=== PATIENT | male | born 1950 | race Caucasian/White ===

== ENCOUNTER 2017-05-14 08:45 | Day surgery (SDC) | payer OTHER ==
[~2017-05-14] VITALS: Ht 170.2 cm; Wt 114.3 kg
[~2017-05-14 08:45] MED LIST: ACETAMINOPHEN325 M1 PO; AMLODIPINE BESYL5 MG PO; ATROVENT15 ML NS; CIPRO500 MG PO; CITALOPRAM HBR20 MG PO; COMPLETE MULTI1 EACH PO; COZAAR100 MG PO; FISH OIL500 MG PO; FLOMAX0.4 MG PO; FLUNISOLIDE1 SPRAY; FUROSEMIDE20 MG PO; LIPITOR20 MG PO; LO-DOSE ASPIRIN81 MG PO; LORATADINE10 MG PO; METFORMIN HCL1000 MG PO; METFORMIN HCL500 MG PO; NAPROSYN500 MG PO; POTASSIUM CHLO10 MEQ PO; PRAVACHOL20 MG PO; PROTONIX20 MG PO; PROVENTIL HFA6.7 GM INH; PSEUDOEPHEDRINE60 MG PO; TRIAMTERENE-HC1 EAC1 PO
--- NOTE | 2017-05-14 12:32 | NUR ---
05/14/17 1232 [facility] ARRIVED IN PACU SLEEPY WITH ORAL AIRWAY IN PLACE. 1153 PT AWAKE. ORAL AIRWAY REMOVED. PT SITTING UP IN BED TALKING TO STAFF. 1215 SIPPING ON WATER. PASSING FLATUS. 1230 DC INSTRUCTIONS GIVEN TO PT/SPOUSE. PT UP TO BATHROO. PASSING FLATUS.
--- NOTE | 2017-05-15 10:58 | OR ---
[facility] [address] [place], [place] [address] Signed DATE OF OPERATION: 05/14/2017 SURGEON: Yenni Martinez MD PREOPERATIVE DIAGNOSES: 1. Restrepo's esophagus. 2. Diverticulosis. 3. Internal hemorrhoids. POSTOPERATIVE DIAGNOSES: 1. Minimal to moderate diffuse gastritis. 2. Small hiatal hernia. 3. Moderate disruption to Z-line without Restrepo's esophagus. 4. Moderate sigmoid diverticulosis. 5. A 5 mm polyp at 8 cm. 6. Multiple internal and external anal skin tags. PROCEDURES: 1. EGD with CLOtest and biopsies of the antrum and GE junction. 2. Colonoscopy with hot biopsy. ESTIMATED BLOOD LOSS: None. INDICATIONS: Ar is a 67-year-old, obese, diabetic, disabled gentleman from our [facility]. He was asked to see me for followup upper and lower endoscopy. A colonoscopy in 2001 showed diverticulosis with some internal hemorrhoids. No evidence of any colon cancer or polyps. He told me there is no family history of colon cancer or polyps. However, he did mention his Restrepo's esophagus. He is aware that Restrepo's esophagus increases risk for esophageal cancer 11 times over the baseline population. He checked to his primary care provider and decided he wanted me to evaluate the esophagus and stomach as well. He also mentioned to me that I did his 's colonoscopy just a few weeks ago, so they are familiar with the whole process. I gave him pamphlets on upper and lower endoscopy in the office and we looked at that together along with the risks including, but not limited to, gas bloating, crampy abdominal pain, bleeding, perforation, requiring surgery, and missed diagnosis. In addition, because of his severe medical issues along with his daily need for citalopram, we asked that an anesthesia provider help us with increased monitoring and sedation with propofol. He had expressed understanding and wished to proceed. Electronically Signed By: YENNI MARTINEZ MD 05/15/17 1058 PATIENT NAME: AR BARTHOLOMEW OPERATIVE REPORT DATE OF : 50 PHYSICIAN: YENNI MARTINEZ MD REPORT #: [id number] REPORT IS CONFIDENTIAL AND NOT TO BE RELEASED WITHOUT AUTHORIZATION [facility] [address], [place] [address] Signed PROCEDURE NOTE: Ar was taken into our endoscopy suite and placed in the supine semi-recumbent position. He was given IV sedation with propofol per our nurse enrobing machine corder. The posterior oropharynx was anesthetized with Hurricaine spray. A bite block was utilized for the case. After this, the adult gastroscope was introduced and advanced all the way out into the third portion of the duodenum under direct visualization of camera without difficulty. The duodenum and pyloric channel were unremarkable. Unfortunately, our computer did not capture the pictures. He does have moderate diffuse gastritis. We went and took a biopsy from the antrum for CLOtest as well as pathologic review. Upon retroflexion of scope, he has just a small hiatal hernia. The scope was withdrawn up through the area of the GE junction, which was compliant without stricture. We saw no gastric or esophageal varices. No ulcerations. He does have moderate disruption to his Z-line, but it does not have a classic velvety appearance of Restrepo's esophagus. We went ahead and took a biopsy along the edge of the Z-line for pathologic review. The middle and upper esophagus were unremarkable. After this, the gas was suctioned out and the gastroscope removed. Ar tolerated his upper endoscopy quite well. Ar was then rotated into the left lateral decubitus position. He was maintained on IV sedation with his propofol. A digital rectal exam was performed and I could feel some internal anal skin tags. He had several small external anal skin tags as well. He is a big man and I could just barely feel the bottom of the prostate. It was a little indurated, but I could not feel a specific nodule. After this, the adult colonoscope was introduced and advanced all around into the cecum under direct visualization of camera without difficulty. His prep was moderate. He had a few areas of liquid particulate stool matter that clogged out my scope. We did slowly withdrawn the scope. We could see the united auburn's foot, the appendiceal orifice, and the ileocecal valve. In the sigmoid colon, he does have diverticula. They were moderate in size, moderate in number, and scattered about. The rectum was unremarkable other than a 5 mm polyp. We removed at 8 cm. Upon retroflexion of the scope, we could see his internal anal skin tags. After this, the gas was suctioned out and the colonoscope removed. Ar tolerated the lower endoscopy quite well. RECOMMENDATIONS: I will see Ar back in my office in 7 to 14 days to review his results. Yenni Martinez MD Electronically Signed By: YENNI MARTINEZ MD 05/15/17 1058 PATIENT NAME: AR BARTHOLOMEW OPERATIVE REPORT DATE OF : 50 PHYSICIAN: YENNI MARTINEZ MD REPORT #: [id number] REPORT IS CONFIDENTIAL AND NOT TO BE RELEASED WITHOUT AUTHORIZATION [facility] [address] [place], [place] [address] Signed ALB/MODL /[id number] cc: LATESHA Naidu MD Electronically Signed By: YENNI MARTINEZ MD 05/15/17 1058 PATIENT NAME: BARTHOLOMEWAR OPERATIVE REPORT DATE OF : 50 PHYSICIAN: YENNI MARTINEZ MD REPORT #: [id number] REPORT IS CONFIDENTIAL AND NOT TO BE RELEASED WITHOUT AUTHORIZATION
== END 2017-05-14 12:35 | disposition home or self-care (01) ==
LOC: OPS 08:45 → DS 08:45 → OPS 10:30 → DS 10:30 → OPS 12:35
PROVIDERS: Colon & Rectal Surgery
PROC: 0DBP8ZX Excision of Rectum, Via Natural or Artificial Opening Endoscopic, Diagnostic (ICD-10-PCS; 2017-05-14)
PROC: 0DB48ZX Excision of Esophagogastric Junction, Via Natural or Artificial Opening Endoscopic, Diagnostic (ICD-10-PCS; principal; 2017-05-14 10:30)
PROC: 0DB78ZX Excision of Stomach, Pylorus, Via Natural or Artificial Opening Endoscopic, Diagnostic (ICD-10-PCS; 2017-05-14 10:30)
DX: Z12.11 Encounter for screening for malignant neoplasm of colon (principal); D12.8 Benign neoplasm of rectum; K29.50 Unspecified chronic gastritis without bleeding; K20.9 Esophagitis, unspecified; K57.30 Diverticulosis of large intestine without perforation or abscess without bleeding; K64.8 Other hemorrhoids; K44.9 Diaphragmatic hernia without obstruction or gangrene; K64.4 Residual hemorrhoidal skin tags; Z79.82 Long term (current) use of aspirin; Z79.84 Long term (current) use of oral hypoglycemic drugs; Z79.899 Other long term (current) drug therapy; Z88.8 Allergy status to other drugs, medicaments and biological substances
CPT/HCPCS: 86677; 88305; J2704; J7120

== ENCOUNTER 2020-03-06 01:21 | Inpatient (IN) | payer MEDICARE ==
[~2020-03-06] VITALS: Ht 170.2 cm; Wt 111.5 kg
[~2020-03-06 01:21] MED LIST changes: -ACETAMINOPHEN325 M1 PO; -AMLODIPINE BESYL5 MG PO; -COMPLETE MULTI1 EACH PO; +FISH OIL 1,2001 EACH PO; -FISH OIL500 MG PO; -FUROSEMIDE20 MG PO; +KLOR-CON M1010 MEQ PO; +LASIX80 MG PO; -LIPITOR20 MG PO; +LIPITOR80 MG PO; +MULTI VITAMIN1 EACH PO; +NORVASC10 MG PO; -POTASSIUM CHLO10 MEQ PO; -PROTONIX20 MG PO; +PROTONIX40 MG PO; +PSEUDOEPHEDRINE30 MG PO; -PSEUDOEPHEDRINE60 MG PO; +TYLENOL EXTRA500 MG PO
[2020-03-06] MEDS ORDERED: NEURONTIN600 MG PO (03:06)
[2020-03-06] MEDS ORDERED: TROSPIUM CHLORI20 MG PO (03:10)
[2020-03-06] MEDS ORDERED: ARICEPT5 MG PO (03:12)
[2020-03-06] MEDS ORDERED: CALCIUM 600 MG1 EAC4 PO (03:13)
[2020-03-06] MEDS ORDERED: CARBIDOPA-LEVO1 EAC1 PO (03:15)
--- NOTE | 2020-03-06 06:00 | NUR ---
PATIENT ARRIVED VIA STRETCHER TO THE UNIT. TRANSFERED WITH 4 STAFF ASSIST TO BED. PATIENT INCONTINENT OF LARGE AMOUNT OF URINE. REQUESTING BEDPAN. PATIENT VOIDED AGAIN ON BEDPAN AN UNMEASURED AMOUNT. PATIENT AAOX4. VS WNL. 3+ EDEMA NOTED IN DASH FEET. 2+ IN LOWER EXTREMITITES. ABD IS SOFT, BOWEL SOUNDS ACTIVE. PATIENT PASSING GAS. LUNGS ARE CLEAR, DIM IN THE BASES. PATIENT REPORTS CHRONIC COUGH. BREATHING REGULAR AND NONLABORED. TOLERATING ROOM AIR. IV FLUIDS PER ORDER, SITE WNL X2.
--- NOTE | 2020-03-06 07:38 | NUR ---
this rn received report from tali ballard. when this rn entereed room she noticed that pt was shivering. this rn provided pt with 650mg of tylenol. this rn and lizbet ballard provided pt with warm blankets to provide comfort to pt.
--- NOTE | 2020-03-06 08:57 | NUR ---
WHEN THIS RN IN PT SROOM ASSESSING THE PT, PT STATED THAT ONCE IN AWHILE HE DOES INCREASE WORK OF BREATHING. PT HAD EXERCTIONAL SHORTNESS OF BREATH WHEN THIS RN AND DARIA RN MOVED PT UP IN BED. THIS RN AWARE OF PTS TEMP AND WILL CONTINUE TO MONITOR
--- NOTE | 2020-03-06 10:58 | NUR ---
THIS RN INSERTED PTS FLORENTINO CATH. PT TOLERATED WELL AND THERE WERE NO ISSUES GETTING PASSED THE PROSTATE. YELLOW URINE DRAINING FROM BAG IMMEDIATELY AFTER INSERTION
--- NOTE | 2020-03-06 13:28 | NUR ---
this rn called to discuss with him that pts mg was 1.3
--- NOTE | 2020-03-06 13:44 | NUR ---
THIS RN IN PTS ROOM DUE TO PT STATING THAT HE WAS HAVING SOME MILD SHORTNESS OF BREATH. PTS VITALS ARE STABEL AND TYLOR SOUNDS ARE CLEAR IN THE UPPERS AND EXPIRATORY WHEEZES IN THE BASES. DARIA RN IN ROOM WITH THIS RN TO ASSIST WITH ASSESSMENT.
--- NOTE | 2020-03-06 14:00 | NUR ---
pts caregiver at bedside at this time
--- NOTE | 2020-03-06 15:10 | NUR ---
THIS RN IN PTS ROOM TO GIVE HIM MEDS. PT STATED THAT HE FELT THE NEED TO HAVE A BM. THIS RN ABLE TO ASSIST PT TO THE BEDSIDE COMMODE WITH HELP FROM DARIA BLACK. PT ABLE TO STAND AND TRANSFER TO THE COMMODE USING A FWW. PT STEADY ON HIS FEET AND ONLY NEEDED SET UP ASSIST AND STAND BY ASSIST.
[2020-03-06] MEDS ORDERED: DITROPAN XL10 MG PO (16:34)
[2020-03-06] MEDS ORDERED: LAMISIL AT12 G1 TOP (16:37)
[2020-03-06] MEDS ORDERED: FLUTICASONE PRO16 GM NAS (16:39)
[2020-03-06] MEDS ORDERED: CLARITIN10 MG PO (16:42)
[2020-03-06] MEDS ORDERED: BLUE TUBE30 GM TOP (16:42)
[2020-03-06] MEDS ORDERED: ASMANEX220 MC1 INH (16:46)
[2020-03-06] MEDS ORDERED: FLOMAX0.4 MG PO (16:47)
[2020-03-06] MEDS ORDERED: LUBRICANT EYE D15 M3 OU (16:54)
[2020-03-06] MEDS ORDERED: REFRESH LIQUIGE15 ML OU (16:55)
--- NOTE | 2020-03-06 17:00 | NUR ---
BACK TO BED WITH ASSIST. USING WALKER. ACCUCHECK-110.
--- NOTE | 2020-03-06 18:00 | NUR ---
this rn in pts room to check on pt. pt states that he is having some shortness of breath. pt states that the sob feels likes congestion. this rn educated pt about using the elk horn/ bugle rt device and the IS. pt used both after this rn educated pt. pt states he feels these are improving his shortness of breath
--- NOTE | 2020-03-06 20:30 | NUR ---
SHIFT REPORT RECEIVED FROM SOFIA NIEVES. ASSESSMENT COMPLETED. PT IS ALERT/ORIENTED, REPORTS 5/10 FLANK AND HIP PAIN, PRN TYLENOL GIVEN. LUNGS CLEAR/DIM, RA. HR REGULAR. BOWEL TONES ACTIVE. FLORENTINO PATENT, CATH CARE PROVIDED. SKIN GROSSLY INTACT, MILD EDEMA NOTED IN BILATERAL FEET/ANKLES. 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 IV SITES INTACT AND PATENT, FLUIDS INFUSING WNL. PT TOOK EVENING MEDICATIONS WITHOUT ISSUE. LIGHTS TURNED OFF BY REQUEST. FRESH WATER PROVIDED. PT DENIES FURTHER REQUESTS OR COMPLAINTS AT THIS TIME, CALL LIGHT AND BELONGINGS WITHIN REACH.
--- NOTE | 2020-03-06 22:16 | NUR ---
PT CALLED NEEDING TO HAVE BM. UP TO BSC WITH 1-PA AND FWW. PT HAD SMALL AMOUNT OF BROWN SEMI-LIQUID STOOL. PERICARE PROVIDED AND PT RETURNED TO BED. PT COMPLAINING CHEST CONGESTION AND FEELING LIKE HE ISN'T ABLE TO FULLY CLEAR HIS SECRETIONS DESPITE USING I.S. AND ACAPELLA. DR. ETIENNE CALLED AND ORDER RECEIVED FOR PRN ROBITUSSIN. ORDERS ALSO RECEIVED TO STOP IV FLUID. PT REPORTS HE USES HOME CPAP, R.T. CALLED TO SET UP A MACHINE FOR HIM.
--- NOTE | 2020-03-07 00:11 | NUR ---
HEARD CPAP ALARMING, IN TO CHECK ON PT WHO WAS AWAKE IN BED. HE WAS SLIGHTLY CONFUSED UPON WAKING AND THOUGHT HE WAS HOME, HE QUICKLY RE-ORIENTED TO SURROUNDINGS. PT THOUGHT HE NEEDED TO HAVE ANOTHER BM, UP TO BSC WITH 1-PA AND FWW, BUT ONLY PASSED FLATUS. RETURNED TO BED. ASSESSMENT COMPLETED, UNCHANGED. CPAP PLACED BACK ON PT. NO FURTHER REQUESTS OR COMPLAINTS AT THIS TIME.
--- NOTE | 2020-03-07 02:27 | NUR ---
PT CALLED, UP TO BSC WITH 1-PA AND FWW. UNABLE TO HAVE BM, BUT PASSED FLATUS. PRN ROBITUSSIN GIVEN FOR COUGH. FRESH ICE WATER PROVIDED. PT OFF CPAP FOR NOW.
--- NOTE | 2020-03-07 04:13 | NUR ---
ASSESSMENT COMPLETED, VITAL SIGNS OBTAINED. FRESH ICE WATER PROVIDED. PT PLACED BACK ON CPAP PER REQUEST AT THIS TIME.
--- NOTE | 2020-03-07 05:05 | NUR ---
PT OFF CPAP. PRN TYLENOL GIVEN FOR 5/10 HIP PAIN. PT UP TO CHAIR PER REQUEST, TRANSFERRED WELL WITH SBA. CALL LIGHT WITHIN REACH.
--- NOTE | 2020-03-07 06:30 | NUR ---
PT GIVEN PRN ROBITUSSIN FOR COUGH. FRESH ICE WATER PROVIDED. PT TRANSFERRED BACK TO BED WITH SBA AND FWW. BREAKFAST ORDER CALLED DOWN TO KITCHEN. CALL LIGHT AND BELONGINGS WITHIN REACH.
--- NOTE | 2020-03-07 07:30 | NUR ---
REPORT RECIEVED. PATIENT IN BED RESTING.
--- NOTE | 2020-03-07 07:30 | NUR ---
REPORT RECIEVED. PATIENT IS AWAKE IN BED REQUESTING
--- NOTE | 2020-03-07 07:40 | NUR ---
OOB TO CHAIR WITH ASSIST. USING WALKER FOR TRANSFERS. FLORENTINO CAT PATENT. DENIES PAIN. TALKED WITH PATIENT ABOUT POC FOR DAY, IS UNDERSTANDING. HAS OCC HARSH COUGH.
--- NOTE | 2020-03-07 08:00 | NUR ---
ASSESSMENT DONE. TALKED WITH PATIENT ABOUT POC FOR DAY. IVF PATENT, FLORENTINO CATH PATENT WITH CLEAR YELLOW URINE NOTED. C/O CVC DISCOMFORT. WILL CHANGE DRESSING THIS AM.
--- NOTE | 2020-03-07 08:30 | NUR ---
TALKING GATERAID AND JELLO. DENIES NAUSEA.
--- NOTE | 2020-03-07 08:33 | NUR ---
Filled pt. water. made bed. no other needs at this time
--- NOTE | 2020-03-07 09:00 | NUR ---
REPOSITIONED TO RIGHT SIDE.
--- NOTE | 2020-03-07 09:13 | NUR ---
MED REC COMPLETE
--- NOTE | 2020-03-07 09:30 | NUR ---
DR. LESLIE HERE TO SEE PATIENT. ORDERS RECIEVED TO TRANSFER TO MEDICAL FLOOR. DRESSING TO [facility] TRIPLE LUMEN CHANGED USING SERILE TECH. TOLERATED WELL.
--- NOTE | 2020-03-07 09:30 | NUR ---
AMBLUATED WITH WALKER FROM ROOM 129 TO OUTSIDE OF ROOM 128, TOLERATED WELL. UPON RETURN TO ROOM, SAT AT BEDSIDE, AM CARES GIVEN. PATIENT IS VERY TALKATIVE.
--- NOTE | 2020-03-07 10:00 | NUR ---
INC OF MED STOOL. BED LINEN CHANGED. BUTTOCKS AND RECTAL AREA RED. LOTION APPLIED.
--- NOTE | 2020-03-07 10:04 | NUR ---
SPOKE WITH PATIENT IN ROOM. PATIENT STATES HE LIVES WITH . HAS MANY FAMILY MEMBERS IN AREA WHO HELP NEEDED. HE DOES NOT DRIVE, FAMILY OR MEDICAL TRANSPORT IS USED. PATIENT USES A 4WW INSIDE HOME AND A WHEELCHAIR TO GO LONG DISTANCES WHEN OUT OF HOUSE. PATIENT ABLE TO TRANSFER ON OWN USING WALKER. PATIENT FEELS HE HAS INCOME TO COVER FOOD AND UTILITIES AND [facility]. HE HAS A CAREGIVER THROUGH [facility] THAT HE REALLY LIKES. FEELS HE IS "SET UP PRETTY GOOD" AND DOESN'T KNOW OF ANYTHING HE NEEDS TO GO HOME SAFELY. CM WILL CONTINUE TO FOLLOW NEEDED.
--- NOTE | 2020-03-07 10:10 | NUR ---
SITTING UP IN BED FOR BREAKFAST.
--- NOTE | 2020-03-07 10:30 | NUR ---
PATIENT IS IN BED, DR. MORFNI HERE TO SEE PATIENT. TRANSFER ORDERS RECIEVED. MONITOR DC'D.
--- NOTE | 2020-03-07 11:40 | NUR ---
ASSESSMENT DONE. WILL REMAIN IN ROOM 129 HOUSE CONV PER SUPERVISIOR. PAIDAX IS AWARE.
--- NOTE | 2020-03-07 11:50 | NUR ---
FLORENTINO CATH DC'D AND EMPTIEND FOR 425 ML CLEAR YELLOW URINE.
--- NOTE | 2020-03-07 12:40 | NUR ---
sitting up in bed EATING AND WATHCHING TV. IS W/O PAIN.
--- NOTE | 2020-03-07 13:44 | NUR ---
PT ALERT, ORIENTED AND LAB IN FOR DRAWS. PT FEELS FEELS HE UNDERSTANDS POC AND FEELS HE IS IMPROVING. HE STATED HE IS TO MOVED TO M/S LATER TODAY. PT ALSO STATED THAT "THERE ARE GOOD PEOPLE HERE". GAVE BLESSING AND WILL FOLLOW
--- NOTE | 2020-03-07 13:45 | NUR ---
PHYS THERAPY HERE TO WORK WITH PATIENT.
[2020-03-07] MEDS ORDERED: APPLE CIDER VI300 MG PO (15:00)
--- NOTE | 2020-03-07 15:25 | NUR ---
COUGH MEDICATION AND SUDAFED GIVEN FOR INCREASED COUGH AND CONGESTION.
--- NOTE | 2020-03-07 16:00 | NUR ---
ASSESSMENT DONE. CONTINUES WITH HARSH OCC PRODUCTIVE COUGH. HAS BEEN IN OF URINE. BLADDER SCAN DONE POST VOID EQUAL 29 ML.
--- NOTE | 2020-03-07 16:49 | EKG ---
[facility] [address] [place] [address] Signed Sinus tachycardia with occasional premature ventricular complexes Left axis deviation Left bundle branch block Abnormal ECG When compared with ECG of 08-MAY-2017 11:22, premature ventricular complexes are now present Vent. rate has increased BY 34 BPM Left bundle branch block is now present Confirmed by DEBBI ETIENNE MD ([id number]) on 03/07/2020 4:49:06 PM Electronically Signed By: DEBBI ETIENNE MD 03/07/20 1649 PATIENT NAME: MOHAMUD BARTHOLOMEW ANGEL Electrocardiogram DATE OF : 50 PHYSICIAN: DEBBI ETIENNE MD REPORT #: [id number] REPORT IS CONFIDENTIAL AND NOT TO BE RELEASED WITHOUT AUTHORIZATION
--- NOTE | 2020-03-07 18:10 | NUR ---
TO XRAY VIA W/C FOR 2 VIEW CHEST ACCOMP BY FRAN AND RN.
--- NOTE | 2020-03-07 18:20 | NUR ---
TOLERATED XRAY WELL. BACK TO ROOM. LESS COUGHING WHEN SITTING UPRIGHT.
--- NOTE | 2020-03-07 18:34 | NUR ---
SITTING UP IN CHAIR. ROBITUSSIN W/CODEINE 10 ML GIVEN FOR COUGH. C/O THROAT PAIN.
--- NOTE | 2020-03-07 19:41 | NUR ---
SHIFT REPORT RECEIVED FROM SOFIA HUFF. PT CALLED AT THIS TIME, HE WAS INCONTINENT OF A LARGE AMOUNT OF URINE. NEW ATTENDS AND CHUX PROVIDED. FRESH ICE WATER PROVIDED. PT CURRENTLY SITTING UP IN CHAIR ON RA. DENIES PAIN AT THIS TIME. CALL LIGHT WITHIN REACH, NO FURTHER REQUESTS.
--- NOTE | 2020-03-07 20:30 | NUR ---
ASSESSMENT COMPLETED, VITAL SIGNS OBTAINED-SEE DOCUMENTATION. DENIES PAIN. INCONTINENT OF URINE, ATTENDS CHANGED. EVENING MEDICATIONS TAKEN WITHOUT ISSUE. IV SITES INTACT AND PATENT. FRESH WATER PROVIDED. CALL LIGHT AND BELONGINGS WITHIN REACH.
--- NOTE | 2020-03-07 21:23 | NUR ---
PT CALLED TO REQUEST TO MOVE BACK TO BED. TRANSFERRED WELL WITH SBA AND FWW. ATTENDS CHANGED, INCONTINENT OF URINE, PERICARE PROVIDED. IV ABX INFUSION COMPLETED, IV SALINE LOCKED. PRN TYLENOL GIVEN FOR 5/10 LOW BACK/HIP PAIN. PT PLACED ON HOME CPAP (PREVIOUSLY SET UP BY [facility]). PLAN TO BRING PT COUGH MEDICINE WHEN DUE, PER REQUEST. CALL LIGHT AND BELONGINGS WITHIN REACH.
--- NOTE | 2020-03-07 22:10 | NUR ---
PRN ROBITUSSIN GIVEN FOR COUGH. PT PLACED BACK ON CPAP. DENIES FURTHER REQUESTS AT THIS TIME.
--- NOTE | 2020-03-07 22:29 | NUR ---
PRN MIKEL AND DEEPA PERLPAYTON GIVEN FOR COUGH. PT FRUSTRATED THAT EVERY TIME HE COUGHS HE IS INCONTINENT OF URINE. PERICARE, NEW ATTENDS, AND CHUX PROVIDED. PT PLACED HIMSELF BACK ONTO CPAP. CALL LIGHT AND BELONGINGS WITHIN REACH.
--- NOTE | 2020-03-07 23:46 | NUR ---
PT CALLED TO REPORT INCONTINENCE OF URINE. ATTENDS CHANGED AND PERICARE PROVIDED. PT REQUESTS TO SIT IN CHAIR, TRANSFERRED WELL WITH SBA AND FWW. AFTER AMBULATING, ATTENDS NEEDED CHANGED AGAIN. PT VERY FRUSTRATED WITH INCONTINENCE WHEN COUGHING AND IS ALSO REPORTING SORE THROAT. DR. ETIENNE CALLED AND ORDER RECEIVED FOR PRN CEPACOL LOZENGES. LOZENGE AND PRN TESSALON PERLES GIVEN AT THIS TIME. ASSESSMENT COMPLETED AND VITAL SIGNS OBTAINED. FRESH ICE WATER PROVIDED. PT REMAINS SITTING UP IN CHAIR, WATCHING TV AND USING CELL PHONE. CALL LIGHT AND BELONGINGS WITHIN REACH.
--- NOTE | 2020-03-07 23:51 | NUR ---
PT CALLED TO REPORT INCONTINENCE OF URINE. ATTENDS CHANGED AND PERICARE PROVIDED. PT REQUESTS TO SIT IN CHAIR, TRANSFERRED WELL WITH SBA AND FWW. AFTER AMBULATING, ATTENDS NEEDED CHANGED AGAIN. PT VERY FRUSTRATED WITH INCONTINENCE WHEN COUGHING AND IS ALSO REPORTING SORE THROAT. DR. ETIENNE CALLED AND ORDER RECEIVED FOR PRN CEPACOL LOZENGES. LOZENGE AND SUDAFED GIVEN AT THIS TIME. ASSESSMENT COMPLETED AND VITAL SIGNS OBTAINED. FRESH ICE WATER PROVIDED. PT REMAINS SITTING UP IN CHAIR, WATCHING TV AND USING CELL PHONE. CALL LIGHT AND BELONGINGS WITHIN REACH.
--- NOTE | 2020-03-08 01:42 | NUR ---
PT REMAINS IN CHAIR, APPEARS TO BE ASLEEP AT THIS TIME. NO APPARENT DISTRESS, RESPIRATIONS EVEN AND UNLABORED. WILL ALLOW FOR REST AND CONTINUE TO MONITOR.
--- NOTE | 2020-03-08 03:20 | NUR ---
HEARD PT COUGHING, IN TO CHECK ON HIM. PRN ROBITUSSIN AND CEPACOL LOZENGE PROVIDED. ASSESSMENT COMPLETED AND VITAL SIGNS OBTAINED. DENIES PAIN. REMAINS SITTING UP IN CHAIR, STATES THAT ATTENDS ARE DRY AT THIS TIME. FRESH ICE WATER PROVIDED.
--- NOTE | 2020-03-08 03:29 | NUR ---
PT CALLED TO REPORT HE'D BEEN INCONTINENT OF URINE. PERICARE PROVIDED AND NEW ATTENDS AND CHUX PROVIDED. PT DENIES FURTHER REQUESTS. CALL LIGHT AND BELONGINGS WITHIN REACH.
--- NOTE | 2020-03-08 05:10 | NUR ---
RESPONDED TO PT CALL LIGHT. PT WAS LOOKING FOR HIS INHALER HE NEEDED TO USE IT. PRN INHALER GIVEN TO PT. PT. TOOK 2 PUFFS DIRECTED. PT PROVIDED WITH ICE WATER WELL. PT REPORTS NO FURTHER NEEDS. CALL LIGHT IN REACH, PT WATCHING TV AT BEDSIDE CHAIR.
--- NOTE | 2020-03-08 05:34 | NUR ---
PT AWAKE, SITTING UP IN CHAIR AND WATCHING TV. PRN CEPACOL AND PSEUDOEPHEDRINE GIVEN FOR COUGH. FRESH ICE WATER PROVIDED.
--- NOTE | 2020-03-08 06:31 | NUR ---
PT INCONTINENT OF URINE, NEW ATTENDS AND CHUX PROVIDED. PRN TESSALON PERLES AND ROBITUSSIN GIVEN FOR COUGH, TYLENOL GIVEN FOR 5/10 HIP PAIN. BREAKFAST ORDER RECEIVED AND CALLED TO KITCHEN.
--- NOTE | 2020-03-08 07:47 | NUR ---
PT SITTING UP IN THE CHAIR, ALERT AND ORIENTED X4. PT DENIES ANY DISTRESS AT THIS TIME. ASSISTED TO CHANGE PT ATTENDS HE WAS INCONTINENT OF URINE. PT ABLE TO STAND FROM CHAIR, USES WALKER FOR SUPPORT. PT IS COOPERATIVE AND POLITE. PT BRUSHES TEETH WHEN GIVEN SUPPLIES.
--- NOTE | 2020-03-08 07:58 | NUR ---
BOTH IV SITES INTACT, NO REDNESS OR SWELLING NOTED, BOTH SITES FLUSH EASILY.
--- NOTE | 2020-03-08 08:11 | NUR ---
PT ABLE TO TAKE ALL PILLS EASILY. HE HAS HIS BREAKFAST. PT DENIES PAIN, NAUSEA, AND SOB AT THIS TIME. CALL LIGHT IS WITHIN REACH. PT SITTING UP IN THE CHAIR WITH PILLOWS FOR SUPPORT.
--- NOTE | 2020-03-08 08:50 | NUR ---
Spoke with Ar for CM assessment. He plans on going home with to his travel trailer on mo. He has ramp, walker, and uses a wc when outside. He has a [facility]. He denies needs to go home.
--- NOTE | 2020-03-08 10:16 | NUR ---
pt one person assist up to the bathroom with walker. pt able to pass flatus only, incontinent of large amount of urine, clean attends placed. pt ambulated back to chair with walker and one person assist.
--- NOTE | 2020-03-08 13:15 | NUR ---
full report called to Inga BLACK, all questions answered.
--- NOTE | 2020-03-08 13:28 | NUR ---
PATIENT ARRIVED TO ROOM 123. PATIENT IS ORIENTED X4, UP TO CHAIR, COMFORTABLE AT THIS TIME.
--- NOTE | 2020-03-08 13:30 | NUR ---
pt transfered to room 123, all personal belongings went with him. pt transfered via chair.
--- NOTE | 2020-03-08 14:16 | NUR ---
PT SITTING IN CHAIR ON PHONE. WILL CHECK BACK LATER
--- NOTE | 2020-03-08 14:58 | NUR ---
PATIENT IS UP IN CHAIR, WATCHING TV, GIVEN AFTERNOON MEDICATIONS, DENIES OTHER NEEDS.
--- NOTE | 2020-03-08 17:34 | NUR ---
PATIENT UP TO VOID, USES WALKER WELL, BACK TO CHAIR AND WATCHING TV. EVENING MEDICATIONS GIVEN.
--- NOTE | 2020-03-08 18:01 | NUR ---
PATIENT UP IN CHAIR WATCHING TV. VITALS AND I&OS CHARTED. FRESH ICE WATER PROVIDED, NO OTHER NEEDED
--- NOTE | 2020-03-08 20:00 | NUR ---
RECEIVED REPORT AT 1900, FOUND PT IN CHAIR WATCHING TV. PT HAD NO NEED AND NO CONCERNS AT THAT TIME.
--- NOTE | 2020-03-08 21:00 | NUR ---
V/S ARE WDL OVERALL, URINE OUTPUT IS ADEQUATE SO FAR. ALL LOBES HAVE EXPIR./INSPIR. WHEEZING PRESENT. PT DENIES SOB. +1 BILATERAL FOOT/ANKLE/LOWER LEG EDEMA PRESENT. RIGHT FACIAL DROOP NOTED. COUGH STILL PRESENT. WILL CONTINUE TO MONITOR.
--- NOTE | 2020-03-08 23:59 | NUR ---
PT IS SLEEPING AT THIS TIME.
--- NOTE | 2020-03-09 02:02 | NUR ---
IN RM TO GET PT UP TO VOID, HAD BM ALSO, PT IS CHATTY PER USUAL, CHANGED PT BLADDER PAD DUE TO INCT OF VOID, PT SPILLED URINE ON THE FLOOR, HAD TO CHANGE PT GOWN AT THIS TIME, PT MAKING WAY BACK TO CHAIR FORM TOILET, CHATTING AND MINIMAL ASSISTANCE WITH FWW, FRESH WATER GIVEN, WHITEBOARD UPDATED, NO FURHTER NEEDS AT THIS TIME
--- NOTE | 2020-03-09 02:44 | NUR ---
PT CALLED TO GET A CUP OF COFFEE, PROVIDED, NO FURTHER NEED AT THIS TIME
--- NOTE | 2020-03-09 03:15 | NUR ---
ASSISTED PT BACK TO BED FROM BATHROOM. PT IS WEAK DUE TO PARKINSONS, BUT OTHERWISE IS DOING WELL. LOBES ARE CLEAR AT THIS TIME. LOWER LEG/ANKEL/FOOT IS UNCHANGED. PT IS BACK IN CHAIR AND WILL TRY TO SLEEP SOME MORE.
--- NOTE | 2020-03-09 05:46 | NUR ---
IN TO GET PT ON TO VOID AND PASS BM, WALKING SLOW PACE TOLERATING WELL, NEW ATTENDS ON NEW BLADDER PAD IN PLACE, PT UP IN CHAIR AT THIS TIME, ENGAUGING IN CONVERSATION, GET PT FRESH ICE WATER AND FRESH CUP OF COFFEE, VITALS/I&Os DONE, RN COMING TO RM, NO FURHTHER NEEDS AT THIS TIME
--- NOTE | 2020-03-09 06:02 | NUR ---
PT OVERALL HAS HAD AN UNEVENTFUL NIGHT. PT RESTED/SLEPT MOST OF THE NIGHT. PT HAD A COUPLE OF INCONTINENT EPISODES. URINE OUTPUT IS ADQUATE. PO INTAKE IS ADAQUATE. V/S ARE WDL OVERALL WITH SOME ELEVATED BP'S. +1 BILATERAL LOWER LEG/ANKEL/FOOT EDEMA STILL PRESENT. ALL LOBES AT TIMES HAVE INSPIR./EXPIR. WHEEZING PRESENT. NO NEW CONCERNS WERE NOTED THIS SHIFT.
--- NOTE | 2020-03-09 08:45 | NUR ---
PT AWAKE AND UP IN CHAIR THIS MORNING. EATING AND DRINKING FLUIDS WELL. PT UP TO BATHROOM, SBA W/ FWW. INCONTINENCE X2 THIS MORNING. PT HAD A SMALL BM X2 THIS AM. MORNING MEDS GIVEN AND ASSESSMENT COMPLETED. PT DENIES PAIN OR NAUSEA. IV IN LFA LEAKING. WILL DC. 20 G IV IN RFA PATENT AND DRESSING INTACT. PT DENIES PAIN OR BURNING W/ URINATION. HAS HAD ADEQUATE URINARY OUTPUT. PT BACK IN CHAIR, NO FURTHER NEEDS AND CALL LIGHT IS WITHIN REACH.
--- NOTE | 2020-03-09 10:30 | NUR ---
PT WAS UP WORKING WITH PHYSICAL THERAPY THIS MORNING. STILL HAS BLE WEAKNESS, DOES NOT TOLERATE AMBULATING LONG DISTANCES WELL, EVEN W/ FWW. BACK IN CHAIR NOW. PT CONTINUES TO DENY PAIN. NO OTHER NEEDS. CALL LIGHT IN REACH.
--- NOTE | 2020-03-09 12:00 | NUR ---
IN TO ASSESS PT. PT ASLEEP IN RECLINER, NOW AWAKE. REPORTS HE HAD EPISODE OF INCONTINENCE IN SLEEP. AIDE HELPED PT CHANGE AND AMBULATE TO BATHROOM. TO ORDER DC. PT DENIES PAIN OR BURNING ON URINATION AND HAS MINIMAL FLANK PAIN W/ PALPATION. ENCOURAGED TO OFFLOAD COCCYX TO MINIMIZE RISK FOR SKIN BREAKDOWN PT PREFERS TO SIT IN CHAIR THROUGHOUT DAY AT HOME. PT HAS CALL LIGHT, NO FURTHER NEEDS.
[2020-03-09] MEDS ORDERED: AMOX TR-K CLV1 EAC1 PO (12:34)
--- NOTE | 2020-03-09 15:27 | NUR ---
PT STABLE AND WHEELED TO CAR FOR RIDE HOME. DC'D W/ SISTER AND DAUGHTER. DC COMPLETED BY MELANY BLACK.
== END 2020-03-09 14:25 | disposition home or self-care (01) | DRG 872 ==
LOC: ED 01:21 → CCU 01:23 → MS 03-08 13:27
PROVIDERS: ADMIT Internal Medicine; ATTEND Internal Medicine
DX: A41.51 Sepsis due to Escherichia coli [E. coli] (principal); N10 Acute pyelonephritis; Z20.828 Contact with and (suspected) exposure to other viral communicable diseases; R65.20 Severe sepsis without septic shock; N40.1 Benign prostatic hyperplasia with lower urinary tract symptoms; N39.498 Other specified urinary incontinence; R35.1 Nocturia; R39.15 Urgency of urination; K21.9 Gastro-esophageal reflux disease without esophagitis; E11.9 Type 2 diabetes mellitus without complications; E78.5 Hyperlipidemia, unspecified; I10 Essential (primary) hypertension; F43.10 Post-traumatic stress disorder, unspecified; J32.9 Chronic sinusitis, unspecified; I69.398 Other sequelae of cerebral infarction; G51.0 Bell's palsy; G20 Parkinson's disease; M54.9 Dorsalgia, unspecified; G89.29 Other chronic pain; Z66 Do not resuscitate; Z88.8 Allergy status to other drugs, medicaments and biological substances; Z79.899 Other long term (current) drug therapy; Z79.84 Long term (current) use of oral hypoglycemic drugs; Z79.1 Long term (current) use of non-steroidal anti-inflammatories (NSAID); Z79.82 Long term (current) use of aspirin
CPT/HCPCS: 36415; 51701; 71045; 71046; 74176; 80053; 81001; 83036; 83605; 83735; 85025; 87077; 87088; 87186; 93005; 93010; 94660; 97110; 97116; 97162; 97165; 99285-25; C9803; J0696; J1650; J1815; J1885; J3475; J7030; J7120; J7121; U0003

== ENCOUNTER 2020-05-26 23:24 | Inpatient (IN) | payer MEDICARE ==
[~2020-05-26] VITALS: Ht 170.2 cm; Wt 112.0 kg
[~2020-05-26 23:24] MED LIST changes: +AMOX TR-K CLV1 EAC1 PO; +APPLE CIDER VI300 MG PO; +ARICEPT5 MG PO; +ASMANEX220 MC1 INH; +BLUE TUBE30 GM TOP; +CALCIUM 600 MG1 EAC4 PO; +CARBIDOPA-LEVO1 EAC1 PO; +CLARITIN10 MG PO; +DITROPAN XL10 MG PO; +FLUTICASONE PRO16 GM NAS; +LAMISIL AT12 G1 TOP; +LUBRICANT EYE D15 M3 OU; +NEURONTIN600 MG PO; +REFRESH LIQUIGE15 ML OU; +TROSPIUM CHLORI20 MG PO
--- OUTSIDE RECORDS SUMMARY | 2020-05-26 23:26 | XMS ---
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 Corky has no Care Guidelines for this patient. Vikas VISIT COUNT (12 MO.) 2 [facility] TOTAL 2 NOTE: Visits indicate total known visits. 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 - Do not resuscitate - Type 2 diabetes mellitus without complications - Benign prostatic hyperplasia with lower urinary tract symptoms - Parkinson's disease - Urgency of urination - Post-traumatic stress disorder, unspecified - Nocturia - intermediate (current) use of oral hypoglycemic drugs - Other specified urinary incontinence - Allergy status to other drugs, medicaments and biological substances - Do not resuscitate - Dorsalgia, unspecified - Hyperlipidemia, unspecified - Contact with and (suspected) exposure to other viral communicable diseases - Nocturia - Type 2 diabetes mellitus without complications - Gastro-esophageal reflux disease without esophagitis - Sepsis due to Escherichia coli [E. coli] - Acute pyelonephritis - Other chcf (current) drug therapy - Essential (primary) hypertension - Other chcf (current) drug therapy - Allergy status to other drugs, medicaments and biological substances - Severe sepsis without septic shock - Person's palsy - Dorsalgia, unspecified - Chronic sinusitis, unspecified - Gastro-esophageal reflux disease without esophagitis - Other chronic pain - Person's palsy - Hyperlipidemia, unspecified - Severe sepsis without septic shock - Sepsis due to Escherichia coli [E. 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
[2020-05-27] MEDS ORDERED: FLOMAX0.4 MG PO (00:29)
[2020-05-27] MEDS ORDERED: CITALOPRAM HBR20 MG PO (00:29)
--- NOTE | 2020-05-27 03:49 | NUR ---
PT ARRIVED TO ROOM 127 AT 0248 VIA STRETCHER AND TRANSFERRED TO BED VIA DRAW SHEET. HE IS ALERT/ORIENTED, REPORTS CHRONIC BACK PAIN 2/10 WHICH HE STATES IS TOLERABLE. LUNGS CLEAR, DIM IN BASES, 4L VIA OXYMASK IN PLACE. HR REGULAR. DENIES CHEST PAIN AND SOB. BOWEL TONES HYPOACTIVE, PT DENIES TENDERNESS OR NAUSEA. SKIN APPEARS GROSSLY INTACT, PEDAL PULSES WEAK. 2+EDEMA IN LLE AND 3+ IN RLE. CMS INTACT. FLORENTINO PATENT, YELLOW URINE. CATH CARE PROVIDED, REDNESS NOTED TO GROIN, PT ALSO HAS SOME OLD SCARS FROM PREVIOUS PENILE SURGERY. IV SITES PATENT AND INTACT, FLUIDS INFUSING WNL. PT PROVIDED WITH ICE WATER AND SUGAR FREE PUDDING. PT REPORTS THAT HE IS DNR/DNI AND THAT HE HAS A POLST FORM AT HOME. CALL LIGHT WITHIN REACH.
--- NOTE | 2020-05-27 04:01 | NUR ---
PT REPORTS THAT HE USES CPAP AT HOME. WHILE SLEEPING PT IS DESATURATING DOWN TO 78%. CALLED R.T. TO HAVE HER COME SET UP A CPAP FOR PT.
--- NOTE | 2020-05-27 04:39 | NUR ---
R.T. SET UP CPAP, HOWEVER, PT IS SLEEPING SOUNDLY AND MAINTAINING SATS ON 4L OXYMASK. WILL LEAVE CPAP IN STANDBY FOR NOW.
--- NOTE | 2020-05-27 06:23 | NUR ---
PT CONTINUES TO SLEEP SOUNDLY AND HAS BEEN ABLE TO MAINTAIN SATURATIONS IN 90s%. FLORENTINO EMPTIED. VITAL SIGNS STABLE.
--- NOTE | 2020-05-27 07:15 | NUR ---
REPORT FROM Jessenia SCHROEDER RN.
--- NOTE | 2020-05-27 07:52 | NUR ---
PATIENT SITTING UP IN BED WAITING FOR BREAKFAST. CALL LIGHT WITHIN REACH NO FUTHER NEEDS AT THIS TIME.
--- NOTE | 2020-05-27 07:52 | NUR ---
PATIENT UP TO THE COMMODE. AM CARE DONE. LINENS CHANGED AND CALL LIGHT WITHIN REACH NO FUTHER NEEDS AT TIME.
--- NOTE | 2020-05-27 07:57 | NUR ---
REPORT RECIEVED BY 0730. PATIENT UP TO BEDSIDE COMMODE WITH MISSION COORDINATOR. COMPLETE BED BATH GIVEN. PATIENT EAGER TO ORDER BREAKFAST. CALL LIGHT WITHIN REACH. WILL CONTINUE TO MONITOR.
--- NOTE | 2020-05-27 07:57 | NUR ---
SITTING UP IN BED, ALERT AND ORIENTED. ASSESSMENT COMPLETED. STATES CHRONIC LEG PAIN "IT'S ALWAYS AT A 5/10." STATES SOME INTERMITTINENT RLQ DISCOMFORT, NONE AT THIS TIME. CALL LIGHT IN REACH, BED RAILS UP X2.
--- NOTE | 2020-05-27 07:59 | NUR ---
ASSESSMENT COMPLETED. PATIENT IN BED, AWAKE AND ALERT. EDEMA PRESENT ON LOWER EXTREMITIES, 3+ ON RLE AND 2+ ON LLE. PAIENT REPORTS MILD DISCOMFORT IN LEGS AND RLQ OF ABDOMEN BUT DENIES ANY SIGNIFICANT PAIN. BED RAILS UP X2. CALL LIGHT WITHIN REACH. DENIES FURTHER NEEDS AT THIS TIME.
--- NOTE | 2020-05-27 08:55 | NUR ---
PATIENT EATING BREAKFAST. CALL LIGHT WITHIN REACH NO FURTHER NEEDS AT THIS TIME.
--- NOTE | 2020-05-27 09:45 | NUR ---
PATIENT SITTING UP IN BED WATCHING TELEVISION. BED RAILS UPX2. CALL LIGHT WITHIN REACH. PATIENT DENIES NEEDS AT THIS TIME.
--- NOTE | 2020-05-27 10:08 | NUR ---
SITTING UP IN BED AT THIS TIME. STATES HE HAS HAD A COUGH AND HAS HAD PHLEGM, "SOMETIMES A LOT." COUGH THIS AM, NO PHLEGM NOTED. REMAINS ON ROOM AIR WITH O2 SATS IN THE MID 90'S. DENIES SHORTNESS OF BREATH.
--- NOTE | 2020-05-27 10:59 | NUR ---
PATIENT SITTING UP IN BED AND WATCHING TELEVISION. DENIES PAIN AND NEEDS AT THIS TIME. PATIENT ORDERED LUNCH. BED RAILS UP X2. CALL LIGHT WITHIN REACH.
--- NOTE | 2020-05-27 11:56 | NUR ---
PATIENT SITTING UP IN BED. REMAINS ALERT AND ORIENTED. INFORMED OF MEDICATIONS ADMINISTERING, GLUCOSE OBTAINED. FLORENTINO CATHETER DC'D BY Pepper CROUCH, COMMERCIAL INSURANCE UNDERWRITER. THIS NURSE AT BEDSIDE.
--- NOTE | 2020-05-27 12:17 | NUR ---
PATIENT SITTING UP IN BED EATING LUNCH. ANTIBIOTICS HUNG AND STARTED. FLORENTINO CATHETER DISCONTINUED AND REMOVED. IV SITE ON RIGHT HAND SALINE LOCKED. PATIENT ENCOURAGED TO CALL WHEN FEELING THE NEED TO VOID. PATIENT DENIES PAIN AT THIS TIME. BED RAILS UPX2. CALL LIGHT WITHIN REACH. PATIENT DENIES FURTHER NEEDS AT THIS TIME.
--- NOTE | 2020-05-27 12:30 | NUR ---
PATIENT SITTING UP IN BED FOR LUNCH. CALL LIGHT WITHIN REACH. NO FUTHER NEEDS AT THIS TIME.
--- NOTE | 2020-05-27 12:45 | NUR ---
Report given to Jeremiah Aguila RN.
--- NOTE | 2020-05-27 13:22 | NUR ---
Taken to room 123 via chair with nursing staff, telemetry in place, on and monitoring cardiac rhythm.
--- NOTE | 2020-05-27 14:04 | NUR ---
PT UP IN THE CHAIR CALLS APPROPRIATELY FOR TOILETING. RETURNS TO CHAIR TO WATCH TV. PT QUITE TALKATIVE. DENIES NEEDS OF. CALL LIGHT AND NEEDED ITEMS IN REACH
--- NOTE | 2020-05-27 15:51 | EKG ---
[facility] [address] [facility] [place] [address] Signed Sinus rhythm with 1st degree AV block Left axis deviation Left bundle branch block Abnormal ECG When compared with ECG of 26-MAY-2020 23:15, (Unconfirmed) Sinus rhythm has replaced Atrial fibrillation Vent. rate has decreased BY 52 BPM QRS duration has increased Confirmed by BRAD BARAJAS DO ([id number]) on 05/27/2020 3:51:08 PM Electronically Signed By: BRAD BARAJAS DO 05/27/20 1551 PATIENT NAME: MOHAMUD BARTHOLOMEW Electrocardiogram DATE OF : 50 PHYSICIAN: BRAD BARAJAS DO REPORT #: [id number] REPORT IS CONFIDENTIAL AND NOT TO BE RELEASED WITHOUT AUTHORIZATION
--- NOTE | 2020-05-27 15:51 | EKG ---
[facility] [address] [facility] [place], [place] [address] Signed Atrial fibrillation with rapid ventricular response Left axis deviation Nonspecific intraventricular block Possible Lateral infarct , age undetermined Abnormal ECG When compared with ECG of 06-MAR-2020 01:40, Atrial fibrillation has replaced Sinus rhythm Confirmed by BRAD BARAJAS DO ([id number]) on 05/27/2020 3:51:01 PM Electronically Signed By: BRAD BARAJAS DO 05/27/20 1551 PATIENT NAME: MOHAMUD BARTHOLOMEW ANGEL Electrocardiogram DATE OF : 50 PHYSICIAN: BRAD BARAJAS DO REPORT #: [id number] REPORT IS CONFIDENTIAL AND NOT TO BE RELEASED WITHOUT AUTHORIZATION
--- NOTE | 2020-05-27 17:34 | NUR ---
PATIENT SITTING IN CHAIR WAITING FOR DINNER. VITAL SIGNS AND I&O'S DOCUMENTED. CALL LIGHT WITHIN REACH NO FUTHER NEEDS AT THIS TIME.
--- NOTE | 2020-05-27 20:50 | NUR ---
IN TO GET VITALS, ICE WATER REFILLED, PT ASKING ABOUT GETTING PM MEDS, RN TO BE IN SHORTLY
--- NOTE | 2020-05-27 21:13 | NUR ---
on room air, coop with assessment, involuntary fine hand tremors noted at times, 2 sl R arm, large abd,no n/v, edema LE, elevated. CBG 131, no coverage needed. C/o generalized, back and LE pain , medicated with Tylenol, helps with repositioning in bed. Watching tv
--- NOTE | 2020-05-27 22:00 | NUR ---
PATIENT CALLED [employer] TO USE RESROOM. 1PA WITH FWW TO BATHRROM. TOLERATED WELL. CHUCKS AND ATTENDS CHANGED. BACK TO BED. FEET OF BED PUT UP. CALL LIGHT IN REACH. LIGHTS TURNED DOWN. PATIENT DENIES ANY FUTHER NEEDS AT THIS TIME.
--- NOTE | 2020-05-28 01:37 | NUR ---
patient called to use bathroom. 1PA with FWW bathroom. back to bed. patient requested to have RT help him learn how to use the cpap. RN Esha notified. call light in reach. feet of bed up. head of bed down. no futher needs at this time.
--- NOTE | 2020-05-28 01:38 | NUR ---
uP TO BR, VOIDED, BACK TO BED, TOLERATED WELL, RT NOTIFIED THAT HE WANTS HIS CPAP ON, BIPAP IN ROOM, RT HERE AND TEACHING DONE WITH PT. TELE#4 DC'D PER ORDERS, NO C/O CP
--- NOTE | 2020-05-28 03:38 | NUR ---
In bed using BIPAP.Up to br, voided, back to chair, legs elevated. 1PA/FWW walks hounched down, fluids well, c/o 09/07 back pain, medicated with tylenol 650mg po, Declines to use BIPAP now
--- NOTE | 2020-05-28 05:13 | NUR ---
Pt currently in chair, awakes easily, used BIPAP like 3 hrs, tolerated well, on room air since 344. Up to br several times using FWW/!PA, slow but staeady gait, decreaed edema of LE, elevated when in bed and chair. 2 SL patent. Lungs dim at bases, no SOb noted with exertion. Was medicated x2 with Tylenol per chronic back pain and generalized pain, effective. CBG 131 last night, no coverage needed, looking forward to going home today
--- NOTE | 2020-05-28 05:30 | NUR ---
GOT VITALS, SBA FWW TO THE TOILET, GOT PT BACK TO BED, NO FURTHER NEEDS
--- NOTE | 2020-05-28 07:06 | NUR ---
pt down to DI for XR, via w/c. acompanied by XR tech
--- NOTE | 2020-05-28 09:20 | NUR ---
REPORT RECEIVED FROM NIGHT RN AND PT. CARE RESUMED. PT. IS ALERT AND ORIENTED. IV SITES WNL AND FLUSH WELL. PT. DENIES PAIN OR NAUSEA. REPORTS A CONSTANT DRY COUGH. PT. DEMONSTATED USE OF INCENTIVE SPIROMETER AND WAS PROVIDED. EDU. +2 EDEMA BLE. PT. LUNGS WERE DIM. THROUGHOUT WITH EXP. WHEEZES IN BASES. THIS NURSE REVIEWED POC FOR THE DAY AND AMBULATING LATER. PT. LEFT RESTING IN BED WITH CALL LIGHT IN REACH.
--- NOTE | 2020-05-28 15:30 | NUR ---
TOYA THE NURSE TOOK HIM A WARM BLANKET WHILE I MADE HIM A HOT PACK FOR HIS BACK. PATIENT IS NOW SITTING IN HIS CHAIR WITH FEET UP WATCHING TV.
--- NOTE | 2020-05-28 19:32 | NUR ---
used urinal, got up to br, 1pa/fww, slow gait, moist productive cough thick phlegm.
--- NOTE | 2020-05-28 20:14 | NUR ---
In chair, hob and legs elevated. Moist productive cough with green thick discharge. Was incontinent of urine, attends changed, 1PA/FWW to br, voided small amounts. Back to bed . Coop with assessment, on room air, lungs dim upper lobes, clear at bases. will call RT as he is ready for CPAP/BIPAP. cbg 141 received 1 unit Insulin. Legs elevated 2+ below ankles/and leg. L Leg 2+ leg and 3+ below ankle, faint pulses but palpable. elevated. redness of r mid low leg still present, much improved.
--- NOTE | 2020-05-28 21:15 | NUR ---
PT CALLED, NEEDED ASSISTANCE WITH CPAP. ONCE IN ROOM, HE NEEDED TO USE THE BATHROOM. STRUGGLED TO GET UP INDEPENDENTLY, WITH ASSIST OF THIS RN, HE WAS ABLE TO STAND. USED URINAL, HOWEVER, PROCESS OF GETTING UP WAS INCONT. ONCE IN BED, FEET ELEVATED TO HIS COMFORT, CPAP PLACED, ADJUSTED AND STATED RELIEF. CALL LIGHT WITHIN REACH.
--- NOTE | 2020-05-29 00:06 | NUR ---
PT CALLED, NEEDED TO USE URINAL. VOIDED, WELL WAS INCONT. ABLE TO GET UP EASIER THIS TIME THAN THE LAST TIME THIS RN ASSISTED HIM. DRY ATTENDS GIVEN, PT AMBULATED SLOWLY TO RECLINER CHAIR. 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
--- NOTE | 2020-05-29 00:22 | NUR ---
pt up in chair, legs elevated, concerned that he is having an increased on his cough and bring up more phlegms". reassured and how thst is good. let pt talk about his concerns and he clmed down, looking forward to going home in am. denies sob. states "I feel better except for this cough"
--- NOTE | 2020-05-29 01:58 | NUR ---
Pt up in chair, no c/o pain, on room air, legs elevated, voided small amounts of yellow urine, uses urinal, call light and fluids at bedside
--- NOTE | 2020-05-29 02:47 | NUR ---
up in chair, then to br, 1PA/FWW, had large soft bm. Back to chair. legs elevated, tolerating fluids well. no c/o s/sx hypo/hyperglycemia. c/o moist productive cough and sore throat. medicated with 1 Cepacol lozenger. call light at bedside.
--- NOTE | 2020-05-29 04:11 | NUR ---
AWAKE, NO FURTHER C/O SORE THROAT, CONTINUES TO HAVE MOIST PRODUCTIVE COUGH W GREEN PHLEGM. IN CHAIR, BACK TO BED, TOLERATED WELL, ELEVATED LEGS. CALL LIGHT AT BEDSIDE.REPOSITIONS SELF
--- NOTE | 2020-05-29 04:52 | NUR ---
Pt has been restless this shift, has not slept much, Up on chair most of this shift, legs elevated off and on. On room air, lungs much better, has moist productive cough with green draingae. received Cepacol for sore throat and it was effective. Tolerating liquids and diet, no n/v. voiding QS yellow urine, uses urinal, up to br and has been incontinent several times. Had a a large bm. Currenlty in bed, resting, on room air, uses CPAP for only 2 hrs.at begining of shift. received tylenol per back pain, chronic, effective SL patent. No SOB noted with exertion til this am
--- NOTE | 2020-05-29 06:34 | NUR ---
In bed, incontinent of urine, up to br, voided more small amounts of urine and had another bm, does own lorena care, clean attends in place. Back to chair, legs elevated, decreaed edema and redness R leg., SOB noted on returning to chair. 1PA/FWW
--- NOTE | 2020-05-29 07:48 | NUR ---
PT UP IN THE CHAIR, ALERT AND INTERACTIVE AT SHIFT EXCHANGE. AGREES HE IS COMFORTABLE ANTICIPATES GOING HOME TODAY, STATES HE IS READY. CALL LIGHT AND NEEDED ITEMS IN REACH TV ON PHONE IN HAND
--- NOTE | 2020-05-29 09:18 | NUR ---
PT CONTINUES IN CHAIR SINCE START OF SHIFT, BREAKFAST COMPLETED AND WELL TOLERATED. PT USES I/S AND TRUMPET WITH ENCOURAGEMENT, FURTHER EDUCATION PROVIDED R/T I/S NEEDS CONTINUED INSTRUCTION.
--- NOTE | 2020-05-29 09:26 | NUR ---
PATIENT SITTING IN CHAIR WATCHING TV. FRESH WATER GIVEN. VITALS AND I&O'S CHARTED. CALL LIGHT IN REACH. NO FURTHER NEEDS AT THIS TIME. WARM WASHCLOTH GIVEN. LINENS CHANGED.
--- NOTE | 2020-05-29 09:43 | NUR ---
Patient states that he plans to be discharged home today, he states his and his adult children help care for him. He also has an in-home caregiver provided through [employer], and funded through [facility]. This caregiver comes to his home five per week. Ar states that he does us a walker at home, and he has a wheelchair at home for "outings." Ar feels very comfortable with his home discharge plans. He states that he does understand his medications, and how to follow-up for his care when he is discharged. Ar is oriented to person, place, and time today, and answers questions appropriately.
[2020-05-29] MEDS ORDERED: CEFDINIR300 MG PO (11:35)
--- NOTE | 2020-05-29 13:38 | NUR ---
BOTH IV'S TAKEN OUT UPON RN REQUEST. BOTH CATHS INTACT, RN NOTIFIED. CALL LIGHT IN REACH. NO FURTHER NEEDS AT THIS TIME.
== END 2020-05-29 13:50 | disposition home or self-care (01) | DRG 871 ==
LOC: ED 23:24 → CCU 05-27 02:00 → MS 05-27 13:25
PROVIDERS: ADMIT Student in an Organized Health Care Education/Training Program; ATTEND Student in an Organized Health Care Education/Training Program
DX: A41.9 Sepsis, unspecified organism (principal); J18.9 Pneumonia, unspecified organism; Z20.822 Contact with and (suspected) exposure to COVID-19; R65.20 Severe sepsis without septic shock; I48.91 Unspecified atrial fibrillation; I10 Essential (primary) hypertension; E11.9 Type 2 diabetes mellitus without complications; K21.9 Gastro-esophageal reflux disease without esophagitis; J45.909 Unspecified asthma, uncomplicated; E78.5 Hyperlipidemia, unspecified; F43.10 Post-traumatic stress disorder, unspecified; G20 Parkinson's disease; N40.0 Benign prostatic hyperplasia without lower urinary tract symptoms; F39 Unspecified mood [affective] disorder; Z66 Do not resuscitate; Z88.8 Allergy status to other drugs, medicaments and biological substances; Z87.891 Personal history of nicotine dependence; Z79.84 Long term (current) use of oral hypoglycemic drugs; Z79.82 Long term (current) use of aspirin; Z79.51 Long term (current) use of inhaled steroids; Z79.899 Other long term (current) drug therapy
CPT/HCPCS: 36415; 51702; 71045; 71046; 71260; 74177; 80048; 80053; 81001; 82803; 83605; 83735; 83880; 84484; 85025; 85379; 93005; 93010; 94640; 94660; 94667; 94760; 97163; 99285-25; C9803; J0456; J0696; J1650; J1815; J2543; J3475; J7030; J7060; J7121; Q9967; U0003

== ENCOUNTER 2021-08-10 10:44 | Emergency (ER) | payer OTHER ==
[~2021-08-10] VITALS: Ht 170.2 cm; Wt 111.6 kg
[~2021-08-10 10:44] MED LIST changes: +CEFDINIR300 MG PO
[2021-08-10] MEDS ORDERED: PREDNISONE20 MG PO ×2 (11:49→11:50)
== END 2021-08-10 12:05 | disposition home or self-care (01) ==
LOC: ED 10:44
DX: G51.0 Bell's palsy (principal); I10 Essential (primary) hypertension; E11.9 Type 2 diabetes mellitus without complications; K21.9 Gastro-esophageal reflux disease without esophagitis; J45.909 Unspecified asthma, uncomplicated; E78.00 Pure hypercholesterolemia, unspecified; G20 Parkinson's disease; Z88.8 Allergy status to other drugs, medicaments and biological substances; Z91.09 Other allergy status, other than to drugs and biological substances; Z79.899 Other long term (current) drug therapy; Z79.82 Long term (current) use of aspirin
CPT/HCPCS: 99284

== ENCOUNTER 2021-10-07 06:53 | Emergency (ER) | payer MEDICARE ==
[~2021-10-07] VITALS: Ht 170.2 cm; Wt 111.6 kg
[~2021-10-07 06:53] MED LIST changes: +PREDNISONE20 MG PO
== END 2021-10-07 10:05 | disposition home or self-care (01) ==
LOC: ED 06:53
DX: U07.1 COVID-19 (principal); G20 Parkinson's disease; I10 Essential (primary) hypertension; E11.9 Type 2 diabetes mellitus without complications; J45.909 Unspecified asthma, uncomplicated; Z88.6 Allergy status to analgesic agent; Z91.014 Allergy to mammalian meats; Z91.048 Other nonmedicinal substance allergy status; Z79.899 Other long term (current) drug therapy
CPT/HCPCS: 87502; 96374; 99283-25; C9803; U0003

== ENCOUNTER 2022-08-27 10:35 | Emergency (ER) | payer OTHER, MEDICARE ==
[~2022-08-27] VITALS: Ht 170.2 cm; Wt 102.7 kg
[~2022-08-27 10:35] MED LIST changes: +DULOXETINE HCL20 MG PO; +FLONASE ALLERG9.9 ML NAS; +GLUCOSAMINE &1 EACH PO; +GLUCOSAMINE CH1 EAC2 PO; +OXYCODONE HCL5 MG PO; +SEROQUEL50 MG PO
[2022-08-27] MEDS ORDERED: NAPHCON-A EYE D15 ML OPTH (11:03)
[2022-08-27] MEDS ORDERED: FLONASE ALLERG9.9 ML NAS (11:03)
[2022-08-27] MEDS ORDERED: ZYRTEC10 M3 PO (11:05)
[2022-08-27 11:06] VITALS: BP 137/74
== END 2022-08-27 11:06 | disposition home or self-care (01) ==
LOC: ED 10:35
DX: H10.13 Acute atopic conjunctivitis, bilateral (principal); J30.9 Allergic rhinitis, unspecified; I10 Essential (primary) hypertension; E11.9 Type 2 diabetes mellitus without complications; K21.9 Gastro-esophageal reflux disease without esophagitis; E78.00 Pure hypercholesterolemia, unspecified; F43.10 Post-traumatic stress disorder, unspecified; G20 Parkinson's disease; Z91.048 Other nonmedicinal substance allergy status; Z88.8 Allergy status to other drugs, medicaments and biological substances; Z79.899 Other long term (current) drug therapy; Z79.82 Long term (current) use of aspirin; Z79.84 Long term (current) use of oral hypoglycemic drugs
CPT/HCPCS: 99283